=== PATIENT | male | born 1975 | race Caucasian/White ===

== ENCOUNTER 2019-04-19 22:04 | Observation (INO) ==
--- NOTE | 2019-04-20 00:24 | Emergency Department Note ---
Disposition Clinical Impression: Leg swelling Hypertension Qualifiers: Hypertension type: unspecified Qualified Code(s): I10 - Essential (primary) hypertension Disposition: Still a Patient Condition: Good Referrals: NONE,PCP [Primary Care Provider] - Forms: ED Satisfaction Letter Time of Disposition: 00:20 General Adult HPI - General Chief complaint: ED Extremity Problem,Nontraumatic Stated complaint: L leg numbness x2 months Time Seen by Provider: 04/19/19 23:47 Source: patient Limitations: no limitations Nursing Notes Reviewed: Yes Vital Signs Reviewed: Yes - History of Present Illness HPI Narrative: Patient's 43-year-old male with a history of DVT was in the emergency department for left leg numbness. Patient states that he has a history of DVT of the left lower leg recently. Patient states he does not have insurance and was able to get the medication necessary. Patient states that over the past couple days he has had increased numbness starting in his toes as well as swelling. Patient states he is unable to go to work because his boot would not fit. Patient has no history of cancer, no hormone therapy, no recent prolonged travel or immobilization. Patient denies chest pain, shortness of breath, palpitations. Pain Scale: 7 - Related Data Previous Rx's Medication Instructions Recorded Naproxen [Naprosyn] 500 mg PO BID #10 tablet 04/26/18 Sulfamethoxazole/Trimeth DS 1 each PO BID #20 tablet 04/26/18 [Bactrim DS] cephALEXin [Keflex] 500 mg PO QID #40 capsule 04/26/18 Allergies Allergy/AdvReac Type Severity Reaction Status Date / Time No Known Allergies Allergy Verified 11/09/15 17:33 All systems ED: reviewed and negative except as stated. Review of Systems: As Per HPI Constitutional: Reports: chills. Denies: fever, weakness Eyes: Denies: eye pain, eye discharge ENT ED: Denies: ear pain, throat pain Cardiovascular: Denies: chest pain, palpitations, dyspnea on exertion Respiratory: Denies: cough, dyspnea Gastrointestinal: Denies: abdominal pain, nausea, vomiting Genitourinary: Denies: urgency, dysuria, frequency, testicular mass Musculoskeletal: Denies: back pain, neck pain Integumentary: Reports: rash, abrasion Neurological: Denies: headache, weakness Psychiatric: Denies: anxiety, depression Endocrine: Denies: fatigue, heat or cold intolerance Past Medical History - Past Medical History Attestation: Yes The following information was validated with the patient. Medical history: Reports: DVT, hypertension Psychiatric history: Reports: no psych history - Social History Smoking Status: Current every day smoker Smokeless Tobacco Status: No Alcohol use: Reports: none Drug use: Reports: none Physical Exam - General Limitations: no limitations General appearance: alert, in no apparent distress - Head Head exam: atraumatic, normocephalic - Eye Eye exam: Present: normal appearance, PERRL, EOMI. Absent: scleral icterus, conjunctival injection - ENT ENT exam: normal exam, normal oropharynx, mucous membranes moist - Neck Neck exam: Present: normal inspection, full ROM - Chest Chest inspection: Present: normal inspection, symmetric chest wall rise - Respiratory Respiratory exam: Present: normal lung sounds bilaterally, respiratory distress - Cardiovascular Cardiovascular exam: Present: regular rate, normal rhythm - Abdominal Exam Abdominal exam: Present: soft, Non-Tender. Absent: tenderness - Expanded Lower Extremity Exam Lower leg exam: Present: other (Patient's left lower leg is swollen, with multiple lesions and eschars in various stages of healing along the anterior tibial portion. Patient has tenderness along the deep venous tract. Patient has increased swelling when compared to the left. There are varicosities present. Right leg has similar scarring and healing scabs. No erythema or elevated temperature.) Neurovascular/Tendon exam: Present: normal capillary refill, extremity cold to touch, pallor. Absent: pulse deficit - Neurological Exam Neurological exam: Present: alert, oriented X3 - Psychiatric Psychiatric exam: Present: normal affect, normal mood - Skin Skin exam: Present: warm, dry, rash Course Vital Signs Temperature 97.5 F L 04/19/19 22:06 Pulse Rate 72 04/19/19 22:06 Respiratory Rate 20 04/19/19 22:06 Blood Pressure 184/115 04/19/19 22:06 O2 Sat by Pulse Oximetry 100 04/19/19 22:06 Temperature 97.5 F L 04/19/19 22:06 Pulse Rate 72 04/19/19 22:06 Respiratory Rate 20 04/19/19 22:06 Blood Pressure 184/115 04/19/19 22:06 O2 Sat by Pulse Oximetry 100 04/19/19 22:06 Oxygen Delivery Oxygen Delivery Room Air Medical Decision Making - [facility] Narrative Medical decision making narrative: Patient presented with the numb and swollen left lower extremity and a history of DVT. DVT pathway was followed which was found to be high risk. Ultrasonography was paged for evaluation of the patient's DVT. Patient was signed off to Dr. Mills please refer to his note for further evaluation and treatment of this patient - Medical Records Medical records reviewed: Yes I reviewed the patient's medical records. - Lab Data Lab results reviewed: Yes I reviewed the patient's lab results.
--- NOTE | 2019-04-20 00:50 | Emergency Department Note ---
Disposition Clinical Impression: Leg swelling Hypertension Qualifiers: Hypertension type: unspecified Qualified Code(s): I10 - Essential (primary) hypertension Disposition: Still a Patient Condition: Good Forms: ED Satisfaction Letter Time of Disposition: 00:50 General Adult HPI - General Chief complaint: ED Extremity Problem,Nontraumatic Stated complaint: L leg numbness x2 months Time Seen by Provider: 04/19/19 23:47 Source: patient Limitations: no limitations - History of Present Illness Pain Scale: 7 - Related Data Previous Rx's Medication Instructions Recorded Naproxen [Naprosyn] 500 mg PO BID #10 tablet 04/26/18 Sulfamethoxazole/Trimeth DS 1 each PO BID #20 tablet 04/26/18 [Bactrim DS] cephALEXin [Keflex] 500 mg PO QID #40 capsule 04/26/18 Allergies Allergy/AdvReac Type Severity Reaction Status Date / Time No Known Allergies Allergy Verified 11/09/15 17:33 Constitutional: Reports: chills. Denies: fever, weakness Eyes: Denies: eye pain, eye discharge ENT ED: Denies: ear pain, throat pain Cardiovascular: Denies: chest pain, palpitations, dyspnea on exertion Respiratory: Denies: cough, dyspnea Gastrointestinal: Denies: abdominal pain, nausea, vomiting Genitourinary: Denies: urgency, dysuria, frequency, testicular mass Musculoskeletal: Denies: back pain, neck pain Integumentary: Reports: rash, abrasion Neurological: Denies: headache, weakness Psychiatric: Denies: anxiety, depression Endocrine: Denies: fatigue, heat or cold intolerance Past Medical History - Past Medical History Medical history: Reports: DVT, hypertension Psychiatric history: Reports: no psych history - Social History Smoking Status: Current every day smoker Smokeless Tobacco Status: No Alcohol use: Reports: none Drug use: Reports: none Physical Exam - General Limitations: no limitations General appearance: alert, in no apparent distress Course Vital Signs Temperature 97.5 F L 04/19/19 22:06 Pulse Rate 72 04/19/19 22:06 Respiratory Rate 04/19/19 22:06 Blood Pressure 184/115 04/19/19 22:06 O2 Sat by Pulse Oximetry 100 04/19/19 22:06 Temperature 97.5 F L 04/19/19 22:06 Pulse Rate 72 04/19/19 22:06 Respiratory Rate 20 04/19/19 22:06 Blood Pressure 184/115 04/19/19 22:06 O2 Sat by Pulse Oximetry 100 04/19/19 22:06 Oxygen Delivery Oxygen Delivery Room Air Attestation Statement - Attestation Attestation: I reviewed the residents documentation and agree with the residents assessment and plan of care. I have personally had face to face time with the patient. (Brief History, Brief Exam, and MDM) I personally supervised and was present for the camargo/critical portions of the following procedures completed by the resident: ekg 43 year old male presents to the ED with complaints of left lower leg swelling and pain and has a histroy fo DVTs, but unfortnately ahs been without his anticoagualtiont herapy and thinks he may have delveoped another .. He has been without his medications because he no longer has health insurance and cannot afford it and has no PCP followup. Patient is also hypetensive but not experincing chest pain, exertional dyspnea, diaphroeissi, nause or vomiting or any other caridopulmonary GI symptoms at this time. I will obtain an EKG and we will obtain a DVT US r/o study. If patient has acute DVT there may be consideration for admission beause of lack of insurance to stay anticoauglted and poor followup.
[2019-04-20 03:46] LABS: Basophils # 0.1 K/mcL (0.0-0.2); Basophils % 0.9 %; Eosinophils % 0.8 %; Hematocrit 38.3 % (37.5-50.1); Hemoglobin 12.7 g/dL (12.9-16.9); Immature Granulocytes % 0.2 % (0-4); Lymphocytes # 1.6 K/mcL (0.6-4.6); Lymphocytes % 30.9 %; Mean Corpuscular HGB Conc 33.2 g/dL (31.6-35.5); Mean Corpuscular Hemoglobin 27.4 pg (28.0-33.3); Mean Corpuscular Volume 82.7 fL (83.0-100.0); Monocytes # 0.5 K/mcL (0.0-1.3); Monocytes % 8.7 %; Neutrophils # 3.1 K/mcL (1.6-8.9); Platelet Count 264 K/mcL (140-400); Red Blood Count 4.63 M/mcL (4.19-5.50); Red Cell Distribution Width 14.1 % (11.5-14.5); Segmented Neutrophils % 58.5 %; White Blood Count 5.3 K/mcL (4.3-11.1)
[2019-04-20 03:57] LABS: INR 1.1; Prothrombin Time 12.4 Seconds (9.4-12.1)
[2019-04-20 04:00] LABS: Activated Partial Thrombo Time 28.9 Seconds (26.0-36.0)
[2019-04-20 04:01] LABS: BUN/Creatinine Ratio 19 (6-26); Blood Urea Nitrogen 16 mg/dL (6-20); Calcium 9.3 mg/dL (8.6-10.3); Carbon Dioxide 28 mEq/L (23-29); Chloride 102 mEq/L (98-107); Glucose 108 mg/dL (70-105); Osmolality,Calculated 290 (280-300); Potassium 3.6 mEq/L (3.5-5.1); Sodium 139 mEq/L (136-145); eGFR For African Americans > 60 (> 60); eGFR For Non-African Americans > 60 (> 60)
[2019-04-20] MEDS ORDERED: *HR* Enoxaparin 80 MG/0.8 ML SYRINGE SQ STA (04:05)
[2019-04-20] MEDS ORDERED: Naloxone 0.4 MG/ML INJ IVP PRN (09:17)
[2019-04-20] MEDS ORDERED: Acetaminophen 325 MG TABLET PO PRN (09:17)
[2019-04-20] MEDS ORDERED: Ondansetron ODT 4 MG TAB.RAPDIS SL PRN (09:17)
[2019-04-20] MEDS ORDERED: traMADol 50 MG TABLET PO PRN (09:17)
--- NOTE | 2019-04-20 09:24 | Internal Med History&Physical ---
Date of Encounter: 04/20/19 Time of Encounter: 09:24 Internal Medicine - H&P: HPI Chief complaint: Left leg swelling Admitted From: Emergency Dept Plans for Post Hospital Care: Home History of present illness: Mr. Denton is a 43 year old male with past medical history of hypertension and DVT current smoker. Patient states that he has a history of DVT in his left lower leg and was treated last year with Lovenox however he was unable to afford medications and has not been taking any anticoagulants. He also states he has a history of venous stasis ulcers and has been treated at wound clinic and [facility] he does not have a primary care provider. Over the past couple of days he has had increased numbness and swelling to his left leg to the point he is unable to put on a shoe that he cannot go to work. 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 Venous duplex was completed which did show-lower extrem ity abnormal deep exam left popliteal vein and peroneal vein demonstrates age indeterminate thrombosis. Tibial component may represent acute on chronic thrombus-patient has been initiated on Lovenox per protocol-lab work is unremarkable vital signs are stable at this time he has been admitted for f urther workup and evaluation Past Med Surg Social Fam HX - Past Medical History Medical history: DVT, hypertension Psychiatric history: no psych history - Social History Smoking Status: Current every day smoker Smokeless Tobacco Status: No Alcohol use: none Drug use: none - Family History Mother Hx Family Cardiac Disorders: Yes Father Hx Family Cardiac Disorders: Yes Internal Medicine - H&P: Meds No Known Home Drugs 04/20/19 [History] Allergy/AdvReac Type Severity Reaction Status Date / Time No Known Allergies Allergy Verified 11/09/15 17:33 All Systems PM: A 10-system review of systems was performed and is negative for pertinent findings except as documented above in the HPI. - Constitutional Constitutional: no chills, no fever(s), no night sweats - EENT Eyes: no change in vision, no discharge, no pain, no photophobia Ears: no ear discharge, no ear pain, no tinnitus Nose, mouth and throat: no dysphagia, no nasal discharge, no neck pain, no sore throat - Cardiovascular Cardiovascular ROS IM: no chest pain, no diaphoresis, no dyspnea, no lightheadedness, no palpitations, no syncope - Respiratory Respiratory: no cough, no dyspnea, no wheezing, no excessive phlegm production - Gastrointestinal Gastrointestinal: no abdominal pain, no diarrhea, no hematemesis, no hematochezia, no melena, no nausea, no vomiting - Musculoskeletal Musculoskeletal ROS IM: numbness, no tingling Additional comments: Lower extremity swelling left leg - Integumentary Integumentary IM: no rash, no unusual bruising - Neurological Neurological ROS: no confusion, no convulsions, no focal weakness, no numbness, no tingling, no tremor(s) - Hematologic/Lymphatic Hematologic/Lymphatic: no easy bruising - Constitutional Vitals: Temp Pulse Resp BP Pulse Ox 98.4 F 68 16 144/89 94 04/20/19 05:39 04/20/19 05:39 04/20/19 05:39 04/20/19 05:39 04/20/19 05:39 General appearance: Present: A&O X 3 Exam: . - Head Head exam: Present: atraumatic, normocephalic - Eye Eye exam: Present: PERRL, conjuntiva pink, sclera anicteric Pupils: Present: PERRL - Neck Neck exam general surgery: Present: supple, trachea midline. Absent: l ymphadenopathy - Respiratory Respiratory exam: Present: CTAB. Absent: accessory muscle use, rales, rhonchi, wheezes - Cardiovascular Cardiovascular exam: Present: RRR, +S1, +S2. Absent: diastolic murmur, gallop, rubs, systolic murmur - GI/Abdominal GI/Abdominal exam: Present: normal bowel sounds, soft, no peritoneal signs. Absent: distended, tenderness - Extremities Exam Extremities exam: Present: pedal edema, warm, radial pulses palpable and symmetrical. Absent: calf tenderness, cyanotic - Expanded Lower Extremities Exam Lower Leg exam: Present: ecchymosis, swelling, tenderness Internal Med - H&P Results - Labs CBC & Chem 7: 04/20/19 03:31 04/20/19 03:31 Labs: Short CBC 04/20/19 Range/Units 03:31 WBC 5.3 (4.3-11.1) K/mcL Hgb 12.7 L (12.9-16.9) g/dL Hct 38.3 (37.5-50.1) % Plt Count 264 (140-400) K/mcL Neutrophils # 3.1 (1.6-8.9) K/mcL BMP 04/20/19 03:31 Sodium 139 Potassium 3.6 Chloride 102 Carbon Dioxide 28 BUN 16 Creatinine 0.83 Glucose 108 H Calcium 9.3 - Assessment and Plan (1) DVT (deep venous thrombosis) Current Visit: Yes Status: Acute Assessment and plan: Patient does have a history of chronic DVT he does not have any insurance and has not been taking any anticoagulation at home. He has been experiencing left lower extremity swelling and tenderness. Venous duplex does reveal left popliteal vein and peroneal vein demonstrates age indeterminate thrombosis. Tibial component may represent acute on chronic thrombus. Continue with Lovenox 1 minute birdcage every 12 hours per DVT protocol Social service consult-due to patient's financial circumstances he is unable to afford anticoagulant it is a holiday weekend hospital outpatient pharmacy as well as social workers are not available until Sunday. Patient may require hospitalization until Sunday been ordered to receive adequate anticoagulation Qualifiers: DVT location: lower extremity Affected thrombotic vein of extremity: tibial Chronicity: unspecified Laterality: left Qualified Code(s): I82.442 - Acute embolism and thrombosis of left tibial vein (2) Hypertension Current Visit: No Status: Chronic Assessment and plan: Patient has a history of hypertension however has not in taking any medication due to financial constraints we will initiate on lisinopril and monitor Qualifiers: Hypertension type: essential hypertension Qualified Code(s): I10 - Essential (primary) hypertension (3) Current nicotine use Current Visit: No Status: Chronic Assessment and plan: Patient is a current 1 pack-a-day smoker nicotine patch encouraged patient to stop smoking - Time Spent With Patient Total time spent is greater than 50% in coordination of care (as documented) at patient's floor/unit and/or counseling patient:
[2019-04-20] MEDS: Nicotine 21 MG PATCH.TD24 TD SCH (17:35)
[2019-04-20] MEDS: *HR* Enoxaparin 100 MG/ML SYRINGE SQ SCH (17:36)
[2019-04-21 02:26] LABS: Basophils # 0.1 K/mcL (0.0-0.2); Basophils % 0.8 %; Eosinophils # 0.1 K/mcL (0.0-0.6); Eosinophils % 1.6 %; Hematocrit 39.1 % (37.5-50.1); Immature Granulocytes % 0.2 % (0-4); Lymphocytes # 2.3 K/mcL (0.6-4.6); Lymphocytes % 37.6 %; Mean Corpuscular HGB Conc 33.2 g/dL (31.6-35.5); Mean Corpuscular Hemoglobin 27.4 pg (28.0-33.3); Mean Corpuscular Volume 82.5 fL (83.0-100.0); Mean Platelet Volume 9.6 fL (9.4-12.4); Monocytes # 0.5 K/mcL (0.0-1.3); Monocytes % 8.5 %; Neutrophils # 3.2 K/mcL (1.6-8.9); Platelet Count 280 K/mcL (140-400); Red Blood Count 4.74 M/mcL (4.19-5.50); Red Cell Distribution Width 13.9 % (11.5-14.5); Segmented Neutrophils % 51.3 %; White Blood Count 6.1 K/mcL (4.3-11.1)
[2019-04-21 02:44] LABS: BUN/Creatinine Ratio 18 (6-26); Blood Urea Nitrogen 14 mg/dL (6-20); Carbon Dioxide 26 mEq/L (23-29); Chloride 104 mEq/L (98-107); Glucose 122 mg/dL (70-105); Osmolality,Calculated 288 (280-300); Potassium 3.4 mEq/L (3.5-5.1); Sodium 138 mEq/L (136-145); eGFR For African Americans > 60 (> 60); eGFR For Non-African Americans > 60 (> 60)
[2019-04-21] MEDS: *HR* Enoxaparin 100 MG/ML SYRINGE SQ SCH ×2 (05:14→22:02)
[2019-04-21] MEDS: Nicotine 21 MG PATCH.TD24 TD SCH (08:01)
[2019-04-21 09:49] LABS: INR 1.1; Prothrombin Time 12.5 Seconds (9.4-12.1)
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
[2019-04-21] MEDS ORDERED: Warfarin perPT PO PRN (18:00)
[2019-04-21] MEDS ORDERED: *HR* Warfarin 5 MG TABLET PO ONE (18:00)
--- NOTE | 2019-04-21 22:56 | Electrocardiograph Report ---
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
--- NOTE | 2019-04-22 00:35 | Event Note ---
Date of Encounter: 04/21/19 Time of Encounter: 19:30 Alerted by Charge Nurse MANJU Anton that the patient has been leaving the unit to smoke outside. Nurse informed me that the patient reported that the day time Hospitalist gave the him permission to leave the unit to smoke during the day. Went to see the patient to inform and educate him regarding hospital policy and how leaving the unit, especially to smoke, is against policy for the safety of the patients. Patient instructed that if he continued to be non-compliant then the next time he left the unit w/o someone from staff then his IV access would be removed, he would be considered AMA, and he would have to return through the ED. Patient expressed understanding and compliance. Nurse instructed to continue monitoring this patient closely and alert me immediately of any adverse changes or continued non-compliance.
[2019-04-22] MEDS ORDERED: Nicotine 14 MG PATCH.TD24 TD SCH (01:57)
[2019-04-22] MEDS: *HR* Enoxaparin 100 MG/ML SYRINGE SQ SCH (05:43)
[2019-04-22 06:08] LABS: Hematocrit 40.1 % (37.5-50.1); Hemoglobin 13.4 g/dL (12.9-16.9); Mean Corpuscular HGB Conc 33.4 g/dL (31.6-35.5); Mean Corpuscular Hemoglobin 27.6 pg (28.0-33.3); Mean Corpuscular Volume 82.7 fL (83.0-100.0); Mean Platelet Volume 9.6 fL (9.4-12.4); Platelet Count 294 K/mcL (140-400); Red Blood Count 4.85 M/mcL (4.19-5.50); White Blood Count 8.1 K/mcL (4.3-11.1)
[2019-04-22 06:17] LABS: Prothrombin Time 11.8 Seconds (9.4-12.1)
[2019-04-22 06:29] LABS: BUN/Creatinine Ratio 14 (6-26); Blood Urea Nitrogen 13 mg/dL (6-20); Carbon Dioxide 27 mEq/L (23-29); Chloride 101 mEq/L (98-107); Glucose 147 mg/dL (70-105); Osmolality,Calculated 295 (280-300); Potassium 2.9 mEq/L (3.5-5.1); Sodium 141 mEq/L (136-145); eGFR For African Americans > 60 (> 60); eGFR For Non-African Americans > 60 (> 60)
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
[2019-04-22 10:32] VITALS: BP 131/76
--- NOTE | 2019-04-22 11:10 | Discharge Summary ---
- NOTES TO OUTPATIENT PROVIDER Notes to Outpatient Provider: f/u with PCP within a week. f/u with coumadin clinic within 5 days. Date of Encounter: 04/22/19 Time of Encounter: 11:09 - Discharge Diagnosis (1) DVT (deep venous thrombosis) Priority: Primary Status: Chronic Qualifiers: DVT location: lower extremity Affected thrombotic vein of extremity: tibial Chronicity: unspecified Laterality: left Qualified Code(s): I82.442 - Acute embolism and thrombosis of left tibial vein (2) Hypertension Priority: Secondary Status: Chronic Qualifiers: Hypertension type: essential hypertension Qualified Code(s): I10 - Essential (primary) hypertension (3) Current nicotine use Priority: Secondary Status: Chronic Hospital course: Mr. Denton is a 43 year old male with past medical history of hypertension and DVT current smoker. Patient states that he has a history of DVT in his left lower leg and was treated last year with Lovenox however he was unable to afford medications and has not been taking any anticoagulants. He also states he has a history of venous stasis ulcers and has been treated at wound clinic and [facility] he does not have a primary care provider. Over the past couple of days he has had increased numbness and swelling to his left leg to the point he is unable to put on a shoe that he cannot go to work. 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 Venous duplex was completed which did show-lower extremity abnormal deep exam left popliteal vein and peroneal vein demonstrates age indeterminate thrombosis, tibial component may represent acute on chronic thrombus. patient has been initiated on Lovenox per protocol and was admitted for further management. Vascular surgery was consulted, recommended to continue Coumadin indefinitely with elastic stocking to the left leg, he is not a good candidate for IVC filter. Coumadin was started, Lovenox will be continue for bridging until INR reaches target. Patient is discharged home today, Lovenox supply for 5 more days as well as prescription for Coumadin were provided. Coumadin clinic appointment was set up. He will also follow-up with PCP within a week. Discharge discussed with: patient Time spent discussing smoking cessation with patient: more than 10 minutes - Time Spent with Patient Total time spent providing and/or coordinating discharge services: Time spent: Greater than 30 minutes - Discharge Medications Prescriptions: New Warfarin [Coumadin] 5 mg PO 1800 #30 tablet Enoxaparin [Lovenox] 90 mg SQ Q12HCO syringe Lisinopril [Zestril] 5 mg PO DAILY #30 tablet Home Medications: Enoxaparin [Lovenox] 90 mg SQ Q12HCO syringe 04/22/19 [Rx] Lisinopril [Zestril] 5 mg PO DAILY #30 tablet 04/22/19 [Rx] Warfarin [Coumadin] 5 mg PO 1800 #30 tablet 04/22/19 [Rx] Allergies/Adverse Reactions: Allergy/AdvReac Type Severity Reaction Status Date / Time No Known Allergies Allergy Verified 11/09/15 17:33 Date of admission: 04/20/19 04:38 Primary care physician: PCP NONE Consults: 04/21/19 09:06 Consult to Vascular Surgery [CONS] Routine Consulting Provider: [facility] [place] Reason for Consult: IVC filter, non-compliant with AC, recurrent DVT. Call Completed: Yes Anticipated date of discharge: 04/22/19 - Constitutional Vitals: Temp Pulse Resp BP Pulse Ox 97.7 F 68 16 131/76 98 04/22/19 10:32 04/22/19 10:32 04/22/19 10:32 04/22/19 10:32 04/22/19 10:32 General appearance: Present: A&O X 3 Exam: PHYSICAL EXAMINATION: GENERAL APPEARANCE: The patient is alert, oriented and in no acute distress. HEENT: Head is normocephalic. The sinuses are nontender. Pupils are equal and reactive. The nares are patent. Oropharynx clear without lesions. NECK: Supple without lymphadenopathy. HEART: Regular rate and rhythm. LUNGS: No crackles or wheezes are heard. ABDOMEN: Soft, nontender, nondistended with good bowel sounds heard. Inguinal area is normal. EXTREMITIES: left leg trace edema with skin discoloration. NEUROLOGICAL: Gross nonfocal. SKIN: Warm and dry without any rash. - Patient Status Disposition: Home, Self-Care Condition: Good Functional capacity at discharge: independent ambulation Overall status at discharge: patient is progressing back to baseline - Discharge Instructions Follow Up With: Nia Ferrera VIDEO GAME ANIMATOR [Advanced Practice Nurse] - 05/14/19 11:00 am Additional Instructions: Anticoagulation clinic: 04/24/2019 at 2:45 - Diet and Activity Activity: increase activity as tolerated Diet: advance to your usual diet - VTE Documentation of Mechanical Device: Graduated compression elastic hosiery
== END 2019-04-22 11:35 | disposition home or self-care (01) ==
LOC: EMEROOARM 22:04 → 3BNU 22:04
PROVIDERS: ADMIT Internal Medicine; ATTEND Nurse Practitioner Acute Care